=== PATIENT | male | born 1945 | race Caucasian/White ===

== ENCOUNTER 2020-04-28 15:06 | Inpatient (IN) | payer OTHER ==
[~2020-04-28] VITALS: Ht 167.6 cm; Wt 80.7 kg
[~2020-04-28 15:06] MED LIST: AGGRENOX CAPSU1 EACH PO; ALLOPURINOL 30300 M1 PO; ASPIR 8181 MG PO; ASPIRIN EC325 M1 PO; ASPIRIN EC81 M1 PO; ASPIRIN81 M2 PO; ATIVAN0.5 MG PO; ATORVASTATIN CA40 MG PO; BYDUREON2 MG SQ; CARVEDILOL12.5 MG PO; CARVEDILOL6.25 MG PO; COLACE 100 MG100 MG PO; COLCHICINE0.6 MG PO; COREG PO; COREG6.25 MG PO; COZAAR 50 MG TA50 M1 PO; EXTRA STRENGTH85 GM TOP; FENOFIBRATE54 MG PO; FISHOIL PO; FLOMAX0.4 MG PO; GLUCOPHAGE500 MG PO; GLUCOTROL XL2.5 MG PO; GLUMETZA500 PO; HEPARIN SO5000 UNIT/ SUBQ; HUMALOG100 UNIT/1 SUBQ; IMDUR 60 MG TAB60 M1 PO; ISOSORBIDE MONO30 M1 PO; KLOR-CON 1010 MEQ PO; LANTUS SC; LANTUS100 UNIT/M SUBQ; LASIX 20 MG TAB20 MG PO; LEVEMIR SUBQ; LEXAPRO20 MG PO; LIPITOR40 MG PO; LIPITOR80 MG PO; METFORMIN HCL500 M1 PO; METFORMIN HCL500 MG PO; MIRALAX17 GM PO; MOBIC15 MG PO; NITROGLYCERIN0.4 MG SUBLING; NITROLINGUAL PU12 G1 SUBQ; NOVOLOG100 UNIT/1 SUBQ; NYSTATIN15 G1 TOP; OMEGA 3-6-9 CO1 EACH PO; PLAVIX 75 MG TA75 MG PO; PROTONIX40 M1 PO; RANEXA500 MG PO; SIMVASTATIN40 MG PO; TRILIPIX135 MG PO; TYLENOL325 MG PO; ZOCOR PO; ZOCOR40 MG PO
[2020-04-28 15:07] VITALS: BP 85/47
[2020-04-28 16:10] LABS: ABSOLUTE NEUTROPHILS 3.4 thou/uL (1.4-8.2); BASOPHILS 1.1 % (0.0-2.0); EOSINOPHILS 6.3 % (0.0-3.0); HEMOGLOBIN 11.2 gm/dL (14.0-18.0); LYMPHOCYTES 22.3 % (24.0-44.0); MCH 30.6 pg (26.0-34.0); MCHC 32.8 g/dL (28.0-37.0); MCV 93.1 fL (80.0-100.0); MONOCYTES 4.5 % (1.0-8.0); PLATELET COUNT 117 thou/uL (150-400); POLYS 65.8 % (36.0-66.0); RBC 3.65 mil/uL (4.50-6.00); RDW 16.4 % (10.5-14.5); WBC 5.2 thou/uL (4.0-11.0)
[2020-04-28 16:30] LABS: ANION GAP 14 mmol/L (7-16); BUN 54 mg/dL (7-18); CALCIUM 8.3 mg/dL (8.5-10.1); CHLORIDE 100 mmol/L (98-107); CO2 19 mmol/L (21-32); CREATININE 3.5 mg/dL (0.7-1.3); GLUCOSE 111 mg/dL (74-106); POTASSIUM 4.7 mmol/L (3.5-5.1); SODIUM 133 mmol/L (136-145)
[2020-04-28 16:41] LABS: ALBUMIN 3.3 g/dL (3.4-5.0); SGOT 37 U/L (15-37); SGPT 28 U/L (30-65); TOTAL BILIRUBIN 1.2 mg/dL (0.2-1.0); TOTAL PROTEIN 7.3 g/dL (6.4-8.2); TROPONIN-I <0.06 ng/mL (<0.06)
[2020-04-28 18:02] VITALS: BP 106/55
[2020-04-28 18:38] VITALS: BP 106/55
[2020-04-28 18:46] VITALS: BP 115/56
[2020-04-29 00:22] VITALS: BP 98/55
[2020-04-29 04:12] VITALS: BP 108/56
[2020-04-29 04:31] LABS: HEMATOCRIT 28.5 % (42.0-52.0); HEMOGLOBIN 9.6 gm/dL (14.0-18.0); MCH 31.3 pg (26.0-34.0); MCHC 33.6 g/dL (28.0-37.0); MCV 93.1 fL (80.0-100.0); RBC 3.06 mil/uL (4.50-6.00); RDW 16.7 % (10.5-14.5); WBC 3.6 thou/uL (4.0-11.0)
[2020-04-29 04:32] LABS: CALCIUM 7.8 mg/dL (8.5-10.1); CREATININE 3.7 mg/dL (0.7-1.3); POTASSIUM 4.1 mmol/L (3.5-5.1)
--- NOTE | 2020-04-29 05:56 | NUR ---
RECEIVED REPORT FROM DAY SHIFT RN.PATIENT A/O X 4.COMPLAIN OF LEFT LEG PAIN AND SORENESS IN HIS ANUS,PATIENT CLAIMS HE HAD DIARRHEA PRIOR TO THIS ADMISSION AND COMPLAIN OF SORENESS.UP WITH ASSIST TO THE BEDSIDE COMMODE.IV FLUIDS INFUSING.MONITOR SHOWS SR.POC CONTINUED.
[2020-04-29 07:25] VITALS: BP 102/84
--- NOTE | 2020-04-29 07:45 | NUR ---
ASSUMED CARE OF PATIENT. INTRODUCED MYSELF. ASSESSMENT COMPLETED. PT STATING PAIN AND IRRITATION TO HIS RECTUM FROM RECURRENT STOOLS. BARRIER CREAM APPLIED FOR PATIENT. PT A/OX4. NO VOICED CONERNS AT THIS TIME.
--- NOTE | 2020-04-29 10:16 | EKG ---
[facility] [place] [address] ELECTROCARDIOGRAM REPORT Name: CAR ALBA Room #: 209-P ADM IN M.R.#: [id number] Admission: 04/28/20 Attend Phys: Aldair Lind MD Discharge: Date of : 47 Report #: [id number] THIS REPORT FOR: cc: Cornell Bravo,Cornell Driscoll,Raimundo Howell MD [facility] ~ THIS REPORT FOR: //name// [facility] ED Test Date: 2020-04-28 Test Time: 15:45:35 Pat Name: CAR ALBA Department: Room: 209 Gender: M Equipment Maintenance Engineer: JULIETA : 1945 Requested By: Jennifer Allan Order Number: [id number] MD: Raimundo Nichols Measurements Intervals [place] Rate: 81 P: 13 CT: 214 QRS: -7 QRSD: 147 T: 179 QT: 413 QTc: 480 Interpretive Statements Sinus rhythm First-degree AV block IVCD Inferior infarct, age indeterminate Compared to ECG 05/25/2015 07:14:49 Inferior Q waves are more prominent Electronically Signed On 04-29-2020 10:16:43 CDT by Raimundo Nichols [email or web address] <ELECTRONICALLY SIGNED> By: Raimundo Nichols MD, [facility] 04/29/20 1016 1545 1545 Raimundo Nichols MD, [facility] /EPI
[2020-04-29 11:15] VITALS: BP 102/51
[2020-04-29 12:32] LABS: % SATURATION 28 % (20-39); IRON 60 ug/dL (65-175); TIBC 214 ug/dL (250-450)
[2020-04-29 12:58] LABS: URINE BLOOD 1+ (Negative); URINE CLARITY CLEAR; URINE COLOR YELLOW; URINE GLUCOSE-RANDOM* NEGATIVE (Negative); URINE KETONES NEGATIVE (Negative); URINE LEUKOCYTES-REFLEX NEGATIVE (Negative); URINE NITRITE-REFLEX NEGATIVE (Negative); URINE PROTEIN (DIPSTICK) TRACE (Negative); URINE UROBILINOGEN 0.2 E.U./dl (0.2-1.0)
[2020-04-29 13:02] LABS: URINE BILIRUBIN NEGATIVE (Negative)
[2020-04-29 13:03] LABS: ICTOTEST (BILI CONFIRMATORY) Negative (Negative)
[2020-04-29 13:10] LABS: BACTERIA-REFLEX 1-9 Few /HPF (None Seen); CASTS None Seen /LPF (None Seen); CRYSTALS None Seen /LPF (None Seen); MUCUS 4-6 Moderate strn/LPF (None Seen); SQUAMOUS 0-3 Few /LPF (0-3); URINE RBC 0-2 Rare /HPF (0-2); URINE WBC-REFLEX 0-5 Rare /HPF (0-5)
[2020-04-29 16:10] VITALS: BP 110/54
--- NOTE | 2020-04-29 17:49 | NUR ---
PT VSS. THROUGHOUT THE SHIFT. PT UP WITH STANDBY ASSIST TO BATHROOM. PT RECTUM IS RAW/RED BARRIER CREAM APPLIED. URINE SPECIMEN COLLECTED. AWAITING STOOL SAMPLE. CT OF ABD COMPLETED TODAY. PLAN FOR EGD TOMORROW. CONSENT IS SIGNED. NPO @ MIDNIGHT. PT IS AWARE. TALKED WITH PT AND REGARDING PLAN OF CARE.
[2020-04-29 19:00] LABS: PROT/CREAT RATIO 0.5; URINE CREATININE-RANDOM* 151.4 mg/dL; URINE PROTEIN-RANDOM* 80.7 mg/dL (<11.9)
[2020-04-29 19:55] VITALS: BP 101/46
--- NOTE | 2020-04-30 02:18 | NUR ---
NPO SINCE MIDNIGHT FOR A POSSIBLE EDG IN AM.DENIES PAIN AND SOB.MONITOR SHOWS SR.STILL WAITING FOR STOOL SAMPLE.
[2020-04-30 03:36] VITALS: BP 95/46
[2020-04-30 04:08] LABS: ALBUMIN 2.7 g/dL (3.4-5.0); CALCIUM 7.3 mg/dL (8.5-10.1); POTASSIUM 3.7 mmol/L (3.5-5.1)
[2020-04-30 04:09] LABS: CREATININE 2.5 mg/dL (0.7-1.3)
[2020-04-30 09:00] VITALS: BP 114/55
--- NOTE | 2020-04-30 12:14 | NUR ---
ASSUMED CARE AT SHIFT CHANGE. PT A/O X 4. C/O CHEST PAIN AT A 3/10 ON PAIN SCALE THIS AM. STATES FEELS LIKE HEARTBURN, NO OTHER SYMPTOMS VOICED WHEN ASKED. DR GRANT NOTIFIED. PT NEEDED COVID SWAB PRIOR TO EGD TODAY. COLLECTED AND WILL SEND TO LAB. PT HAS HAD NO BM SINCE ADMISSION. GAVE REPORT TO ASHLEY BANDA AT THIS TIME THIS RN'S ASSIGNMENT HAS CHANGED.
--- NOTE | 2020-04-30 14:38 | NUR ---
ASSESSMENT: CM REVIEWED CHART. CM ATTEMPTED TO CONTACT PT BUT NO ANSWER. CM REACHED OUT TO PATIENTS . PT WAS ADMITTED DUE TO NAUSEA AND VOMITTING AND WEIGHTLOSS. PT IS HAVING A COVID TEST COMPLETED AND PLANS FOR EGD IN THE AM. PT REMAINS ON IV FLUIDS. PT LIVES IN A DUPLEX WITH HIS . SHE REPORTS NO STEPS THAT THEY HAVE TO USE. PT HAS A CANE AND WALKER AT HOME FOR AMBULATION. SHE REPORTS THEY HAVE A GRAB BAR IN THE SHOWER BUT PT IS INDEPENDENT WITH ADLS. PT HAS NOT HAD HH IN THE PAST NOR BEEN TO A SNF. PTS PCP IS DR. NEETU WADE. CM DISCUSSED ROLE. CM WILL CONTINUE TO FOLLOW TO ASSIST NEEDED.
[2020-04-30 14:59] LABS: HEMATOCRIT 29.5 % (42.0-52.0); MCH 31.3 pg (26.0-34.0); MCHC 32.9 g/dL (28.0-37.0); RBC 3.11 mil/uL (4.50-6.00); RDW 17.2 % (10.5-14.5); WBC 3.2 thou/uL (4.0-11.0)
[2020-04-30 15:00] LABS: HEMOGLOBIN 9.7 gm/dL (14.0-18.0)
[2020-04-30 16:50] VITALS: BP 115/57
[2020-04-30 17:36] VITALS: BP 115/57
--- NOTE | 2020-04-30 17:41 | NUR ---
ASSUMED CARE OF PT AT APPROX 1300. ASSESSEMENTS CHARTED. MEDS GIVEN PER MAR. PT A&OX4, NO C/O CHEST PAIN THIS PM. AT BEDSIDE. PT HAS POOR APPETITE. COVID RESULTS PENDING FOR EGD IN AM. PT NPO AFTER MN. WILL CONTINUE TO MONITOR.
[2020-04-30 20:13] VITALS: BP 111/53
[2020-05-01 03:38] VITALS: BP 98/54
--- NOTE | 2020-05-01 04:27 | NUR ---
PATIENT IS ADVANCING SLOWLY IN HIS CARE PLAN. VITAL SIGNS STABLE WITH PATIENT STILL EXHIBITING ASSYMPTOMATIC HYPOTENSION. PATIENT IS FULLY ORIENTED AND ABLE TO CALL APPROPRIATELY FOR NEEDS AND PARTICIPATE IN CARE. PATIENT DID EXHIBIT ANXIETY UPON INITIAL ASSESSMENT AND WAS TREATED PER ORDER. BREATHING STABLE ON ROOM AIR EVIDENCED BY ASSESSMENT AND SPOT OXYGENATION CHECKS. PATIENT WAS ABLE TO AMBULATE TO THE BEDSIDE COMMODE MULTIPLE TIMES WITHOUT INCIDENT, HE IS CONSIDERED A HIGH FALL RISK. NPO AT MIDNIGHT FOR EXPECTED PROCEDURE. CONTINUE PLAN OF CARE.
[2020-05-01 04:31] LABS: ALBUMIN 2.4 g/dL (3.4-5.0); CALCIUM 7.1 mg/dL (8.5-10.1); CREATININE 2.1 mg/dL (0.7-1.3); PHOSPHORUS 2.4 mg/dL (2.5-4.9); POTASSIUM 3.6 mmol/L (3.5-5.1)
--- NOTE | 2020-05-01 07:38 | EKG ---
[facility] [address] [facility] [address] ELECTROCARDIOGRAM REPORT Name: CAR ALBA Room #: 209-P ADM IN M.R.#: [id number] Admission: 04/28/20 Attend Phys: Aldair Lind MD Discharge: Date of : 47 Report #: [id number] THIS REPORT FOR: cc: Cornell Bravo,Cornell Patterson,Cem CARO [facility] ~ THIS REPORT FOR: //name// [facility] Test Date: 2020-04-30 Test Time: 15:08:37 Pat Name: CAR ALBA Department: Room: 209 P Gender: M Air Sampling And Monitoring: Alva ALLISON : 1945 Requested By: Kendell Beckwith Order Number: [id number] MD: Cem Yañez Measurements Intervals [place] Rate: 82 P: MT: QRS: 37 QRSD: 124 T: 242 QT: 405 QTc: 473 Interpretive Statements NSR IVCD, consider atypical LBBB Baseline wander in lead(s) V1 Compared to ECG 04/28/2020 15:45:35 No significant change Electronically Signed On 05-01-2020 7:38:31 CDT by Cem Yañez [email or web address] <ELECTRONICALLY SIGNED> By: Cem Yañez MD, [facility] 05/01/20 0738 1508 1508 Cem Yañez MD, [facility] /EPI
[2020-05-01 08:20] VITALS: BP 103/49
--- NOTE | 2020-05-01 13:41 | P ---
[facility] [address] PROCEDURE REPORT Name: CAR ALBA Room #: 209-P ADM IN M.R.#: [id number] Admission: 04/28/20 Attend Phys: Aldair Lind MD Discharge: Date of : 47 Report #: [id number] THIS REPORT FOR: cc: Cornell Bravo Aaron DO McElhinney, Christian C. MD ~ CC: Cornell Lind MD DATE OF SERVICE: 05/01/2020 PROCEDURE PERFORMED: Upper endoscopy with biopsies. HISTORY OF PRESENT ILLNESS: The patient is a 74-year-old male who was admitted for nausea, vomiting and weight loss. The patient has been on Plavix. He has diabetes, multiple medical problems. CT scan of the abdomen and pelvis showed possible mild enteritis as well as a gallstone and possible mild pericholecystic edema without fluid. He denies any abdominal pain. Plan is for upper endoscopy. DESCRIPTION OF PROCEDURE: The risks and benefits of the procedure were explained to the patient, those risks including but not limited to bleeding, perforation and the risk of sedation. He understood these risks and gave informed consent. Sedation was given using propofol per anesthesia. Next, using a standard Olympus upper endoscope, the scope was placed in the patient's mouth and advanced under direct vision through the esophagus, stomach and into the second portion of the duodenum. The larynx was normal in appearance. The esophagus was normal throughout. The GE junction was normal. There was a mild diffuse gastritis in the body and antrum, multiple small erosions were noted and a single small clean white-based ulcer, 4 mm in size was noted. No evidence of bleeding. Biopsies were obtained to rule out H. pylori. The pylorus was normal and patent and mild duodenitis was noted in the duodenal bulb and first and second portion of the duodenum. No evidence of ulcerations or bleeding in the duodenum. The scope was then withdrawn and the procedure terminated. The patient tolerated the procedure well. IMPRESSION: 1. Gastritis with multiple small erosions and a single small ulcer. Biopsies obtained to rule out H. pylori. 2. Mild duodenitis. 3. Otherwise, normal upper endoscopy. RECOMMENDATIONS: 1. Await biopsy results. 2. Continue PPI therapy, which was just started during this hospital stay. [address] [address] PROCEDURE REPORT Name: CAR ALBA Room #: 209-P [facility] IN M.R.#: [id number] Admission: 04/28/20 Attend Phys: Aldair Lind MD Discharge: Date of : 47 Report #: [id number] 3. If the patient has continued symptoms, may consider gastroparesis and a gastric emptying study. He has a small gallstone noted on CT as well as mild gallbladder wall thickening. He denies any abdominal pain at this time. We will advance diet and monitor. Thank you for allowing me to participate in his care. <ELECTRONICALLY SIGNED> By: Clemente Singh MD 05/01/20 1341 1253 1308 Clemente Singh MD /nt
[2020-05-01 14:46] VITALS: BP 132/63
--- NOTE | 2020-05-01 18:36 | NUR ---
ASSUMED CARE OF PT AT SHIFT CHANGE. ASSESSMENTS CHARTED. MEDS GIVEN PER OCT. PT A&OX4, NO C/O PAIN OR DISTRESS. ANXIOUS PRIOR TO LEAVING FOR PROCEDURE. EGD COMPLETE, PT TOLERATED WELL. PT HAS LITTLE APPETITE, NO N/B OR BM DURING SHIFT. WILL CONTINUE TO MONITOR.
[2020-05-01 20:20] VITALS: BP 133/69
--- NOTE | 2020-05-02 02:44 | NUR ---
NO EVENTS OVERNIGHT. PT ALERT AND ORIENTED. VSS. C/O PAIN/SORENESS TO THE RIGHT ARM. DENIES CHEST PAIN, N/V/D. BARRIER CREAM APPLIED FOR RECTAL SORENESS. PT ANTICIPATES TO DC IN THE AM.
[2020-05-02 04:00] VITALS: BP 120/54
[2020-05-02 06:12] LABS: ALBUMIN 2.6 g/dL (3.4-5.0); CALCIUM 7.3 mg/dL (8.5-10.1); CREATININE 1.5 mg/dL (0.7-1.3); PHOSPHORUS 1.9 mg/dL (2.5-4.9); POTASSIUM 3.7 mmol/L (3.5-5.1)
[2020-05-02 07:00] VITALS: BP 101/59
--- NOTE | 2020-05-02 07:39 | HC ---
[facility] [place] [address] CONSULTATION Name: CAR ALBA Room #: 209-P [facility] IN M.R.#: [id number] Admission: 04/28/20 Attend Phys: Aldair Lind MD Discharge: Date of : 47 Report #: [id number] THIS REPORT FOR: cc: Cornell Bravo,Carroll Epstein MD ~ CC: Cornell Turpin BRIEF HISTORY: The patient is a 74-year-old male with nausea, vomiting, weight loss and chronic diarrhea. HISTORY OF FOR CONSULTATION: The patient has a history of diabetes, dating back to 1994. He had been on insulin in the past, but recently has been off of insulin therapy. He has had coronary artery disease and bypass surgery in 1994. He has also had multiple stents placed. He suffered a myocardial infarction in January of this year. Since that time, he reports that he is having more difficulty, actually more so in the past 3-4 weeks. The patient reports that he has always had trouble with nausea and vomiting. He said if he eats too fast or his feeds him too fast, he will start belching and then vomit. Sometimes he vomits up food and sometimes liquids. He has not vomited up blood. Those symptoms of nausea and vomiting have worsened in the past several weeks. He also states he has no appetite. He also reports she cannot eat a full meal. In addition, he believes since the first year, he has lost between 30 and 40 pounds. During the same interval time, he has developed diarrhea. He describes usually 2 watery stools per day, which are nonbloody. He has had colonoscopies in the past with the last about 5 or 6 years ago. He does not recall any specific findings. Prior to the onset of diarrhea 3-4 weeks ago, he reports his stool habits were normal. Again, he is diabetic. He has been on metformin for a long period of time. However, interestingly, he was told at [place] with his recent heart attack in January of this year that he had gout and he has been on colchicine. He said he never knew that he had gout per his report. In addition, he has not had any recent rectal bleeding. PAST MEDICAL HISTORY: Coronary artery disease with previous bypass surgery and multiple intracoronary stents. He has also had kidney injury and acute tubular necrosis and chronic kidney disease. He has autonomic dysfunction. He apparently suffered a cardiac arrest and has had ventricular tachycardia in the past. He has had longstanding type 2 diabetes, but no longer on insulin. More recently, his blood pressure has been quite low. He also had a stroke in 2008 and manifested by left sided neglect. He has had hypertriglyceridemia. PAST SURGICAL HISTORY: Open heart surgery in 1994, appendectomy and left [facility] [address] [place] [address] CONSULTATION Name: CAR ALBA Room #: 209-P [facility] IN M.R.#: [id number] Admission: 04/28/20 Attend Phys: Aldair Lind MD Discharge: Date of : 47 Report #: [id number] shoulder surgery. ALLERGIES: No known drug allergies. MEDICATIONS: Usual home medicines, the patient cannot tell me his medicines. He says his , usually takes care of those. Listed on the medical record are number of medicines, it is not clear which he is taking and how much, but the list includes meloxicam 15 mg daily, metformin 500 mg twice daily, Glucotrol XL 2.5 mg daily, nystatin topically, allopurinol 300 mg daily, colchicine 0.6 mg daily, Plavix 75 mg daily, atorvastatin 80 mg daily, Imdur 60 mg daily, nitroglycerin 0.4 mg as needed for chest pain, carvedilol 6.25 mg twice daily, losartan 50 mg daily, furosemide 20 mg daily, MiraLax as needed for constipation, pantoprazole 40 mg daily. FAMILY HISTORY: Mother of pancreatic cancer. No family history of colon cancer. SOCIAL HISTORY: , has never smoked. He does consume alcohol and has consumed alcohol heavily in the past. He reports he was afraid he developed an alcohol problem. He was drinking bourbon. He switched to scotch because he does not like the taste as much, and therefore, does not drink as much, but he still consumes alcohol. 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 REVIEW OF SYSTEMS: GENERAL: He has lost about 30-40 pounds. He has not had any recent fever or chills NEUROLOGIC: No seizures, but he did have a stroke in 2008. HEENT: No change in vision. He does wear hearing aids. No sores in the mouth. PULMONARY: Pneumonia many years ago. No cough or tuberculosis. CARDIOVASCULAR: Significant coronary artery disease with ischemic cardiomyopathy. No chest pain at this time. GASTROINTESTINAL: Nausea and vomiting, which has been chronic and now worse. Diarrhea for the past 3-4 weeks. No rectal bleeding. Last colonoscopy 4-5 years ago. MUSCULOSKELETAL: Multiple arthralgias, myalgias. SKIN: Without rashes. PSYCHIATRIC: He does have at least situational depression and anxiety. He is phobic of needles. ENDOCRINE: Diabetes, not aware of any hormone problems. HEMATOLOGIC: No bleeding or bruising. He has had a skin cancer removed from his ear. PHYSICAL EXAMINATION: GENERAL: A well-developed, well-nourished male who is awake, alert and oriented, no acute distress. VITAL SIGNS: Blood pressure 102/84, pulse rate of 78. [facility] [address] [place] [address] CONSULTATION Name: CAR ALBA Room #: 209-P ADM IN M.R.#: [id number] Admission: 04/28/20 Attend Phys: Aldair Lind MD Discharge: Date of : 47 Report #: [id number] HEENT: Anicteric. Pupils equal and round. Oropharynx clear. NECK: Supple. CHEST: Clear. HEART: Regular rate and rhythm, normal S1, normal S2. ABDOMEN: Normal bowel sounds, soft, nontender, without hepatosplenomegaly or masses. RECTAL: Deferred at this time. EXTREMITIES: Without cyanosis, clubbing or edema. NEUROLOGICAL: Oriented to place and time. Moves all 4 extremities well. LABORATORY DATA: White count of 3.6, hemoglobin of 9.2, platelet count of 90,000. Electrolytes unremarkable, BUN of 53, creatinine 3.7. Hemoglobin A1c of 7.2. Total bilirubin 1.2, AST of 37, ALT of 28, alkaline phosphatase of 170. IMAGING: Normal appearing kidneys by ultrasound. Chest x-ray, no infiltrates. ASSESSMENT: 1. Nausea and vomiting, worsening. 2. Diarrhea, chronic. 3. Weight loss 30-40 pounds in less than a year. 4. Diabetes, poorly controlled. 5. Coronary artery disease, status post bypass surgery, multiple intracoronary stents. 6. Ischemic cardiomyopathy. 7. History of cardiac arrest. 8. Gout. 9. History of stroke. 10. High blood pressure. 11. Hyperlipidemia. 12. Use of nonsteroidals, meloxicam. 13. Normochromic iron deficiency, likely related to chronic kidney injury, COMMENT: The patient claims that his symptoms are chronic. He blames it on his feeding him too fast. He was scheduled for an upper endoscopy this Wednesday. However, yesterday, he felt dizzy and nearly passed out, so was brought to the hospital at that point. RECOMMENDATIONS: 1. Agree with PPI at this point. 2. Upper endoscopy plan for tomorrow discussed with the patient. 4. Check uric acid. 5. Check iron studies 6. Iron studies. 7. Stool for fecal leukocytes. 8. Stool for enteric pathogens. [facility] [address] [place] [address] CONSULTATION Name: CAR ALBA Room #: 209-P [facility] IN M.R.#: [id number] Admission: 04/28/20 Attend Phys: Aldair Lind MD Discharge: Date of : 47 Report #: [id number] 9. Stool for C. diff since the patient was admitted to another hospital about 2 months ago, which increases a risk for C. diff. 10. Check ultrasound of the liver regarding thrombocytopenia. He does have a history of heavy alcohol consumption. 11. CT of the abdomen without contrast due to kidney disease to further evaluate the liver. 12. If stool studies are negative, he will need a colonoscopy. 13. Celiac screen, since he is diabetic, has diarrhea and weight loss. <ELECTRONICALLY SIGNED> By: Carroll Bowers MD 05/02/20 0739 0956 1112 Carroll Bowers MD /nt
[2020-05-02 11:30] VITALS: BP 124/67
[2020-05-02 13:04] VITALS: BP 124/67
[2020-05-02 13:22] VITALS: BP 124/67
--- NOTE | 2020-05-02 13:58 | NUR ---
FAXED REFERRAL TO [facility] SPOKE WITH PRIYANK IN INTAKE SHE CAN ACCEPT PT FOR HH. PT DISCHARGING TODAY TO HOME WITH [facility] HH FAXED DC ORDERS/SUMMARY SPOKE WITH PRIYANK SHE RECEIVED ORDERS AND WILL NOTIFY PT TO SET UP VISITS.
--- NOTE | 2020-05-03 18:06 | PATH ---
[facility] [address] [place] [address] PATHOLOGY RPT PROCEDURE Name: CAR ALBA Room #: 209-P DIS IN M.R.#: [id number] Admission: 04/28/20 Date of : 47 Discharge: 05/02/20 Report #: [id number] Path Case #: [id number] [facility] Accession Number: [id number] . 01 Material submitted: . stomach - BX OF GASTRITIS . 01 Clinical history: . R/O H PYLORI, ACUTE KIDNEY FAILURE, UNSPECIFIED HYPOVOLEMIC SHOCK, N/V, WT LOSS . 02 Diagnosis: Gastric mucosa, gastritis, endoscopic biopsy: - Moderate reactive gastropathy. - Negative for intestinal metaplasia or atrophy. - Negative for Helicobacter pylori (properly controlled immunohistochemical stain performed). (IUV/db; 05/03/2020) LBQ 05/03/2020 1348 Local . 02 Electronically signed: . Susannah Rodríguez MD, Pathologist NPI- [id number] . 01 Gross description: . The specimen is received in formalin, labeled "AlbaCar, BX of gastritis" and consists of 2 fragments of pink-fair tissue measuring 0.4 x 0.3 cm and 0.5 x 0.4 cm which are entirely submitted in A1. (SDY; 05/02/2020) SYU/SYU 05/02/2020 1602 Local . 02 Pathologist provided ICD-10: K31.9 . 02 CPT . 450511, K31330 Specimen Comment: A courtesy copy of this report has been sent to [phone] Specimen Comment: [phone], Specimen Comment: Report sent to ,DR WADE / DR LECHUGA Performed at: [address] [id number] MD Julian Varela MD Phone: [phone] Performed at: [address] [id number] [address] [address] PATHOLOGY RPT PROCEDURE Name: CAR ALBA Room #: 209-P DIS IN M.R.#: [id number] Admission: 04/28/20 Date of : 47 Discharge: 05/02/20 Report #: [id number] Path Case #: [id number] MD Susannah Rodríguez MD Phone: [phone]
--- NOTE | 2020-05-06 07:11 | HC ---
[facility] [place] [address] CONSULTATION Name: CAR ALBA Room #: 209-P [facility] IN M.R.#: [id number] Admission: 04/28/20 Attend Phys: Aldair Lind MD Discharge: 05/02/20 Date of : 47 Report #: [id number] THIS REPORT FOR: cc: Cornell Bravo,Evan Field MD ~ CC: Cornell Lind DATE OF SERVICE: 04/29/2020 NEPHROLOGY CONSULTATION REASON FOR CONSULTATION: Acute kidney injury. HISTORY OF PRESENT ILLNESS: This is a 74-year-old male with a long history of severe coronary artery disease and complications thereof. He was brought into the Emergency Room yesterday by his with symptoms of hypotension, possible syncope and generally not doing well. He denies much of these symptoms today. In spite of that, reviewing his admitting notes and what his was saying, he has had nausea, vomiting, dizziness, some diarrhea, decreased intake. He has been getting worse over the recent weeks and there is some orthostatic component to this. Upon presentation to the Emergency Room, he had a blood pressure of 85/47 with a heart rate of 82. He was afebrile. He was given some IV fluids and blood pressures improved somewhat. I's and O's are not recorded. His creatinine on presentation was at 3.5 and is up to 3.7 today. The patient states he has been told previously had some mild abnormal kidney test. He was last in the hospital at [facility] in January 2020 with another OR. At that time, his creatinine was 1.9. He was supposed to see a screed person for evaluation of that, but that has not yet occurred. He states he is able to void urine. He thinks he has not had much in the way of edema. Medications all reviewed below and are significant. He is unaware of any urinary tract infections, hematuria, proteinuria or nephrolithiasis. No urinalysis has yet been done. He did have a renal ultrasound done, which I reviewed. It shows fairly normal appearing kidneys bilaterally with thick cortices and no evidence of hydronephrosis. The patient has been on a blood pressure medication for years after his MIs and coronary interventions. He has had diabetes mellitus, dating back many years in addition. In spite of prior hospitalizations, there is no old urinalysis on his records here. PAST MEDICAL HISTORY: Atherosclerotic coronary artery disease. He has had multiple myocardial infarctions. He has had a previous multivessel coronary artery bypass graft surgery done by Dr. Salas seen at [facility]. He has had multiple stents, another percutaneous coronary interventions over the years. He is followed by Dr. Carroll Ansari of [facility]. His most recent [facility] [address] [place] [address] CONSULTATION Name: CAR ALBA Room #: 209-P DIS IN M.R.#: [id number] Admission: 04/28/20 Attend Phys: Aldair Lind MD Discharge: 05/02/20 Date of : 47 Report #: [id number] was in January 2020 when he was at [facility] and he states he had another OR at that time. Additional history is that of some prior TIA. He has had a bit of diarrhea of late, no bloody diarrhea. He has had prior appendectomy in addition, multiple PTCAs as noted above. MEDICATIONS: On admission include metformin 500 mg b.i.d., glipizide 2.5 mg daily, allopurinol 300 mg daily, colchicine 0.6 mg daily, Plavix 75 mg daily, atorvastatin 80 mg daily, isosorbide mononitrate 60 mg daily, losartan 50 mg daily, furosemide 20 mg daily, pantoprazole 40 mg daily, and meloxicam 15 mg daily. He does not recognize the meloxicam. He states he has been on indomethacin for a very long period of time and that he has never been told to stop it. FAMILY HISTORY: Noncontributory. SOCIAL HISTORY: The patient is and lives in [place], [place]. He is retired. 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 He is now much more sedentary. He is a nonsmoker. REVIEW OF SYSTEMS: Appetite has been fair. For the past couple of days, he has had some diarrhea and hypotension documented by his , but he denies it. States he has been eating. States he has no trouble voiding urine, does not think he has had edema. He is bit uncertain of his medications as it sounds like his has been administering those. He is unaware of fevers, chills or sweats. Denies current chest pain or palpitations. PHYSICAL EXAMINATION: GENERAL: Elderly appearing male, awake, alert, responsive and asymptomatic while lying flat in bed. VITAL SIGNS: Most recent blood pressure 102/84, heart rate 78, temperature is 97.4, oxygen saturation 98%. HEENT: Shows pupils are equal and reactive. Sclerae nonicteric. Oral mucosa is somewhat dry. NECK: Veins are not distended. Neck is supple, no bruits. CHEST: Fairly clear bilaterally. BACK: Shows no CVA tenderness. CARDIOVASCULAR: Heart has a regular rate and rhythm. I hear no gallop or rub. ABDOMEN: Has active bowel sounds, is soft. Nontender at this time. I cannot neither palpate nor percuss any organomegaly or masses. EXTREMITIES: Show no peripheral edema, has diminished peripheral pulses. Renal ultrasound was done and I have reviewed those images. It shows normal appearing kidneys with very thick cortices and no hydronephrosis. LABORATORY DATA: From admission, sodium 133, potassium 4.7, chloride 100, [facility] [address] [place] [address] CONSULTATION Name: CAR ALBA Room #: 209-P [facility] IN [place].#: [id number] Admission: 04/28/20 Attend Phys: Aldair Lind MD Discharge: 05/02/20 Date of : 47 Report #: [id number] bicarbonate 19, BUN 54, creatinine 3.5 with a glucose of 111, calcium 8.3, total bilirubin 1.2, AST 37, ALT 28, total protein 7.3, albumin 3.3. Troponin is less than 0.06. White count 5.2, hemoglobin 11.2, hematocrit 34.0, platelets 117,000. Urinalysis not done. As of today, creatinine level up to 3.7, but otherwise similar labs. ASSESSMENT: 1. Acute kidney injury on top of what is probably chronic kidney disease. He came in hypotensive. He has been on the angiotensin receptor zacarias, some diuretics as well as some apparent nonsteroidal. Whether this has actually been meloxicam, which fits his list or indomethacin, which he says he is taking, either one would certainly contribute to a rising creatinine in the face of hypotension, some volume depletion, and co-administration of his other medications as noted above. He has been making some urine. Blood pressure is starting to improve. He needs some more volume intravenously. We will give this judiciously. We need to check urine studies including a fractional excretion of sodium. In the meantime, as his blood pressure improves, we will hopefully see some improving urine output and then improving clearance after that. The other consideration at this point is potential cholesterol emboli after recent cardiac catheterization and myocardial infarction. He is not showing blue toes. He is not showing peripheral eosinophilia, which would argue against being cholesterol emboli, but will certainly keep an open mind regarding that. 2. Coronary artery disease, extensive, multiple prior myocardial infarctions, coronary artery bypass graft surgery, and percutaneous interventions. He is followed by Dr. Carroll Ansari. Troponin at this time is negative. Most recent event was about 3 months ago. 3. Hypotension. We will hold off on his other meds. He said he had previously been on Entresto and no doubt was hypotensive at that time also. We will continue with judicious amount of IV normal saline to help keep his blood pressure up. 4. Longstanding diabetes mellitus. Watch her sugars and with his acute kidney injury, hold his metformin. PLAN: 1. Keep him on a moderate rate of IV fluid at this time. 2. Hold other medications as noted above. 3. We will check a urinalysis and fractional excretion of sodium as well as a protein creatinine ratio. 4. Closely monitor intake, output and creatinine levels. 5. We will continue to follow along this patient. Make additional recommendations going forward. <ELECTRONICALLY SIGNED> By: Evan Norman MD 05/06/20 0711 [id number] Evan Norman MD /nt
== END 2020-05-02 16:09 | disposition home health service (06) | DRG 682 ==
LOC: ER 15:06 → 2N 17:48 → EROBS 17:48 → 2N 18:33
PROVIDERS: Hospitalist; Internal Medicine Nephrology; Physician Assistant; Specialist; ADMIT Hospitalist; ATTEND Hospitalist
PROC: 0DB68ZX Excision of Stomach, Via Natural or Artificial Opening Endoscopic, Diagnostic (ICD-10-PCS; principal; 2020-05-01)
DX: N17.9 Acute kidney failure, unspecified (principal); E43 Unspecified severe protein-calorie malnutrition; I50.22 Chronic systolic (congestive) heart failure; E87.1 Hypo-osmolality and hyponatremia; E87.2 Acidosis; D61.818 Other pancytopenia; I13.0 Hypertensive heart and chronic kidney disease with heart failure and stage 1 through stage 4 chronic kidney disease, or unspecified chronic kidney disease; K29.70 Gastritis, unspecified, without bleeding; K25.9 Gastric ulcer, unspecified as acute or chronic, without hemorrhage or perforation; I25.10 Atherosclerotic heart disease of native coronary artery without angina pectoris; E78.00 Pure hypercholesterolemia, unspecified; I25.5 Ischemic cardiomyopathy; E86.0 Dehydration; I95.9 Hypotension, unspecified; K52.9 Noninfective gastroenteritis and colitis, unspecified; M10.9 Gout, unspecified; E78.5 Hyperlipidemia, unspecified; K29.80 Duodenitis without bleeding; G47.00 Insomnia, unspecified; R63.4 Abnormal weight loss; K76.0 Fatty (change of) liver, not elsewhere classified; N18.3 Chronic kidney disease, stage 3 (moderate); Z20.828 Contact with and (suspected) exposure to other viral communicable diseases; E11.22 Type 2 diabetes mellitus with diabetic chronic kidney disease; K80.80 Other cholelithiasis without obstruction; Z80.0 Family history of malignant neoplasm of digestive organs; Z95.5 Presence of coronary angioplasty implant and graft; Z86.73 Personal history of transient ischemic attack (TIA), and cerebral infarction without residual deficits; Z95.1 Presence of aortocoronary bypass graft; Z90.49 Acquired absence of other specified parts of digestive tract; I25.2 Old myocardial infarction; Z79.1 Long term (current) use of non-steroidal anti-inflammatories (NSAID); Z68.28 Body mass index [BMI] 28.0-28.9, adult; Z79.82 Long term (current) use of aspirin; Z79.899 Other long term (current) drug therapy
CPT/HCPCS: 10081; 62110; 62900; 70005